=== PATIENT | female | born 1975 | race African-American/Black ===

== ENCOUNTER 2016-06-19 13:33 | Inpatient (IN) | payer BC ==
[~2016-06-19] VITALS: Ht 160 cm; Wt 89.8 kg
[2016-06-19 13:33] VITALS: BP 142/92; PULSE 111; RESP 22; TEMP 98.6; O2SAT 100
--- NOTE | 2016-06-19 13:33 | NUR ---
Placed in room 01. Placed on court recording monitor, blood pressure machine and pulse oximeter. To gown for exam. Side rails up. Report given to WILLIAMS Aguayo.
--- NOTE | 2016-06-19 13:34 | NUR ---
Dr. Mccartney at bedside for evaluation
[2016-06-19] MEDS ORDERED: LORazepam 2 MG/ML VIAL (FOR ER USE) IVP ONE (13:45)
[2016-06-19] MEDS ORDERED: NACL 0.9% 1,000 ML IV ONE (13:45)
[2016-06-19 14:35] LABS: BASOPHILS # (AUTO) 0.1 K/uL (0.0-0.2); BASOPHILS % (AUTO) 0.5 % (0.0-2.0); EOSINOPHILS # (AUTO) 0.1 K/uL (0.0-0.4); EOSINOPHILS % (AUTO) 1.3 % (0.0-4.0); HEMOGLOBIN 11.3 g/dL (12.0-16.0); LYMPHOCYTES # (AUTO) 1.9 K/uL (1.0-5.5); LYMPHOCYTES % (AUTO) 17.1 % (20.5-51.5); MEAN CORPUSCULAR HEMOGLOBIN 29 pg (27-31); MEAN CORPUSCULAR HGB CONC 33 % (32-36); MEAN CORPUSCULAR VOLUME 89 fL (79.0-98.0); MONOCYTES # (AUTO) 0.5 K/uL (0.0-1.0); MONOCYTES % (AUTO) 4.7 % (1.7-9.3); NEUTROPHILS # (AUTO) 8.7 K/uL (1.8-7.7); NEUTROPHILS % (AUTO) 76.4 % (40.0-70.0); PLATELET COUNT (AUTO) 306 K/uL (130-430); RED BLOOD CELL COUNT(AUTO) 3.83 MIL/uL (4.2-6.2); RED CELL DISTRIBUTION WIDTH 12.5 % (9.0-15.0); WHITE BLOOD COUNT (AUTO) 11.3 K/uL (4.8-10.8)
[2016-06-19 15:04] LABS: INR 1.4 (0.8-1.2); PROTHROMBIN TIME 15.6 SECS (9.5-12.5)
[2016-06-19 15:14] LABS: ALBUMIN 2.6 g/dL (3.4-4.8); CREATININE 0.59 mg/dL (0.55-1.30); TOTAL BILIRUBIN 0.1 mg/dL (0.0-1.0); TOTAL PROTEIN, SERUM 5.2 g/dL (6.4-8.3)
[2016-06-19 15:16] LABS: POTASSIUM 2.5 mmol/L (3.5-5.1)
[2016-06-19 15:17] LABS: CALCIUM 6.1 mg/dL (8.4-11.0)
[2016-06-19 15:24] LABS: BILIRUBIN,URINE NEGATIVE (NEGATIVE); BLOOD, URINE NEGATIVE (NEGATIVE); CLARITY/URINE CLEAR (CLEAR); COLOR,URINE YELLOW (YELLOW); GLUCOSE,URINE NEGATIVE (NEGATIVE); KETONES,URINE 3+ (NEGATIVE); LEUKOCYTE ESTERASE ,URINE NEGATIVE (NEGATIVE); NITRITE, URINE NEGATIVE (NEGATIVE); PH,URINE 6.5 (5.0-8.0); PROTEIN URINE NEGATIVE (NEGATIVE); UROBILINOGEN,URINE 0.2 (0.2-1.0)
[2016-06-19] MEDS ORDERED: GLUXR500 PO (15:24)
[2016-06-19] MEDS ORDERED: BENA5TAB2 PO (15:24)
--- NOTE | 2016-06-19 15:24 | NUR ---
Medication reconciliation completed with information provided by patient. Any prior medication reconciliation on file was reviewed and corrected.
[2016-06-19] MEDS ORDERED: POTASSIUM CHLORIDE 20 MEQ TAB.PRT.SR PO ONE (15:30)
[2016-06-19] MEDS ORDERED: CALCIUM GLUCONATE 500 MG TABLET PO ONE (15:30)
--- NOTE | 2016-06-19 15:36 | NUR ---
Telemetry strip printed, interpreted as SINUS RHYTHM at 115 bpm, and placed on the chart.
[2016-06-19] MEDS ORDERED: ONDANSETRON HCL 4 MG/2 ML VIAL IVP PRN (15:45)
[2016-06-19 15:46] LABS: THYROID STIMULATING HORMONE 0.71 uIu/mL (0.34-4.82)
[2016-06-19 15:47] LABS: BACTERIA,URINE RARE /HPF (None Seen); RBC,URINE 0-3 /HPF (0-3); WBC,URINE NONE SEEN /HPF (0-3)
--- NOTE | 2016-06-19 15:56 | NUR ---
ADMISSION NOTE Received patient from ER via [facility], received report from jason KRAMER. Patient admitted with diagnosis of hypokalemia, tachycardia. Patient oriented to hospital routine, call light, toileting and safety-patient verbalized understanding.
[2016-06-19 16:00] VITALS: BP 122/85; PULSE 108; RESP 19; TEMP 99; O2SAT 99
[2016-06-19 16:05] VITALS: BP 125/85; PULSE 108; RESP 18; TEMP 99; O2SAT 100
--- NOTE | 2016-06-19 16:05 | NUR ---
Patient will be admitted to care of Dr. Wilson. Admitted to telemetry unit. Will go to room 110A. Belongings list completed. Summary report printed. Report given to Priyanka Senior.
[2016-06-19 16:06] LABS: BARBITURATE, URINE NEGATIVE (NEG <=200); BENZODIAZEPINE, URINE POSITIVE (NEG <=150); CANNABINOID, URINE NEGATIVE (NEG <=50); COCAINE, URINE NEGATIVE (NEG <=150); METHAMPHETAMINES SCREEN,URINE NEGATIVE (NEG <=500); OPIATE, URINE NEGATIVE (NEG <=100); PHENCYCLIDINE SCREEN,URINE NEGATIVE (NEG <=25); UR TRICYCLIC ANTIDEPRESSANTS NEGATIVE (NEG <=300); URINE AMPHETAMINE NEGATIVE (NEG <=500); URINE METHADONE NEGATIVE (NEG <=200); URINE OXYCODONE SCREEN NEGATIVE (NEG <=100); URINE PROPOXYPHENE SCREEN NEGATIVE (NEG <=300)
[2016-06-19] MEDS: LR 1,000 ML IV SCH ×2 (17:32→20:46)
--- NOTE | 2016-06-19 18:00 | NUR ---
accucheck before dinner 161mg/dl,eating well for dinner,IVF continue infusing.continue to monitor pt.
--- NOTE | 2016-06-19 19:40 | NUR ---
PM SHIFT ASSESSMENT Received patient in sitting up in bed, aox4. Vitals stable. Denies any pain or discomfort at this time. IV line to left hand intact and patent, IVF of LR infusing at 200 cc/hr. POC discussed with patient, verbalized understanding, compliant, oriented to use call light or phone for nurse assistance, both within patient's reach. Safety measures in place, will continue to monitor.
[2016-06-19 19:54] VITALS: BP 127/68; PULSE 101; RESP 20; TEMP 97.7; O2SAT 98
[2016-06-19 20:10] LABS: CALCIUM 8.6 mg/dL (8.4-11.0); CREATININE 0.81 mg/dL (0.55-1.30); POTASSIUM 4.1 mmol/L (3.5-5.1)
--- NOTE | 2016-06-19 21:05 | NUR ---
RN ROUNDS Patient awake, blood sugar check this pm, 98. Patient denies any pain or discomfort, call light within reach, will monitor.
[2016-06-19] MEDS ORDERED: MAGNESIUM SULFATE 50 ML IV ONE (22:00)
--- NOTE | 2016-06-19 22:08 | NUR ---
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
[2016-06-19] MEDS ORDERED: DEXTROSE 50% JECT 50 ML DISP.SYRIN IVP PRN (22:15)
--- NOTE | 2016-06-19 22:31 | NUR ---
RN ROUNDS Patient seen by Dr. Wilson, new orders written, carried out. Patient updated in plan of care, verbalized understanding, compliant.
[2016-06-19 23:38] VITALS: BP 123/70; PULSE 79; RESP 20; O2SAT 99
--- NOTE | 2016-06-20 00:21 | NUR ---
RN ROUNDS Patient awake, vitals stable. Denies any pain or discomfort at this time. IVF ongoing. Safety measures in place, call light remains within reach, will continue to monitor.
--- NOTE | 2016-06-20 02:12 | NUR ---
RN ROUNDS Patient resting quietly, no distress noted, safety measures in place, call light remains within reach, will continue to monitor.
--- NOTE | 2016-06-20 04:03 | NUR ---
RN ROUNDS Patient asleep, respirations even and unlabored, vital signs stable. Safety measures in place, call light remains within reach, will continue to monitor.
[2016-06-20 05:00] VITALS: BP 132/80; PULSE 75; RESP 18; TEMP 97.2; O2SAT 98
[2016-06-20] MEDS: LR 1,000 ML IV SCH ×2 (05:41→11:49)
--- NOTE | 2016-06-20 06:28 | NUR ---
RN ROUNDS Patient awake, denies any pain or discomfort at this time, blood sugar check this am, 116. Patient's IV line intact and patent, IVF continues to infuse, patient needs attended to, safety measures maintained through out shift, call light remains within reach, will continue to monitor until report given to am nurse.
[2016-06-20 07:49] LABS: BASOPHILS # (AUTO) 0.1 K/uL (0.0-0.2); BASOPHILS % (AUTO) 0.7 % (0.0-2.0); EOSINOPHILS # (AUTO) 0.2 K/uL (0.0-0.4); EOSINOPHILS % (AUTO) 2.7 % (0.0-4.0); HEMATOCRIT 36.3 % (36-48); HEMOGLOBIN 12.5 g/dL (12.0-16.0); LYMPHOCYTES # (AUTO) 3.2 K/uL (1.0-5.5); LYMPHOCYTES % (AUTO) 37.3 % (20.5-51.5); MEAN CORPUSCULAR HEMOGLOBIN 30 pg (27-31); MEAN CORPUSCULAR HGB CONC 34 % (32-36); MEAN CORPUSCULAR VOLUME 88 fL (79.0-98.0); MONOCYTES # (AUTO) 0.5 K/uL (0.0-1.0); MONOCYTES % (AUTO) 5.7 % (1.7-9.3); NEUTROPHILS # (AUTO) 4.6 K/uL (1.8-7.7); NEUTROPHILS % (AUTO) 53.6 % (40.0-70.0); PLATELET COUNT (AUTO) 320 K/uL (130-430); RED BLOOD CELL COUNT(AUTO) 4.13 MIL/uL (4.2-6.2); RED CELL DISTRIBUTION WIDTH 12.3 % (9.0-15.0); WHITE BLOOD COUNT (AUTO) 8.6 K/uL (4.8-10.8)
[2016-06-20 08:00] VITALS: BP 121/72; PULSE 67; RESP 20; TEMP 97.9; O2SAT 95
--- NOTE | 2016-06-20 08:00 | NUR ---
Initial notes. Patient awake.alert and oriented ,denies any pain or discomfort . Telemetry note NSR rate -67 . Patient is ambulatory ,no gait disturbance.Patient instructed to keep NPO for abdominal ultrasound this morning.
--- NOTE | 2016-06-20 09:00 | NUR ---
Patient went to the bathroom but her IV got disconnected . IV infiltrated.IV started on the right forearm Gauge #24.
[2016-06-20 09:09] LABS: ANION GAP 7 (5-15); CALCIUM 8.4 mg/dL (8.4-11.0); CHLORIDE 107 mmol/L (98-107); CREATININE 0.66 mg/dL (0.55-1.30); GFR AFRICAN AMERICAN 126 mL/min (>90); GLUCOSE 112 mg/dL (70-99); POTASSIUM 4.3 mmol/L (3.5-5.1); SODIUM SERUM 136 mmol/L (136-145); UREA NITROGEN, BLOOD 6 mg/dL (8-21)
[2016-06-20 09:10] LABS: ALANINE AMINOTRANSFERASE 35 U/L (12-78); ALBUMIN 3.3 g/dL (3.4-4.8); ASPARTATE AMINOTRANSFERASE 17 U/L (10-37); CHOLESTEROL 131 mg/dL (<200); PHOSPHORUS 2.6 mg/dL (2.7-4.5); TOTAL BILIRUBIN 0.3 mg/dL (0.0-1.0); TOTAL PROTEIN, SERUM 6.5 g/dL (6.4-8.3); TRIGLYCERIDES 95 mg/dL (30-150)
[2016-06-20 09:11] LABS: HDL CHOLESTEROL 51 mg/dL (>55); LDL CHOLESTEROL 61 mg/dL (<100)
[2016-06-20 09:12] LABS: IRON (SERUM) 121 mcg/dL (37-145); TOTAL IRON BIND. CAPACITY 325 ug/dL (250-450)
--- NOTE | 2016-06-20 10:00 | NUR ---
Patient reminded to be NPO for Ultrasound of the abdomen to be done at 3pm.
[2016-06-20] MEDS ORDERED: METOPROLOL SUCCINATE 50 MG TAB.SR.24H (TOPROL XL) PO ONE (10:30)
--- NOTE | 2016-06-20 12:00 | NUR ---
Patient resting awaiting for test to be done .Denies any discomfort
[2016-06-20 12:06] VITALS: BP 129/79; PULSE 72; RESP 16; TEMP 98.5; O2SAT 99
[2016-06-20] MEDS: INSULIN REGULAR, HUMAN 100 UNITS/ML, 10 ML VIAL (novoLIN R) SUBCUT PRN (16:43)
[2016-06-20 16:49] VITALS: BP 136/89; PULSE 79; RESP 16; TEMP 98.8; O2SAT 100
--- NOTE | 2016-06-20 17:07 | NUR ---
1600 Abdominal ultrasound done at bedside . Patient eating her lunch.
--- NOTE | 2016-06-20 18:44 | NUR ---
Patient remained stable ,telemetry NSR HR 60's.Denies any pain or discomfort.
--- NOTE | 2016-06-20 19:55 | NUR ---
PM SHIFT ASSESSMENT Received patient in sitting up in bed, aox4. Vitals stable. Denies any pain or discomfort at this time. Sinus Rhythm on tele monitor. IV line to right forearm infiltrated, new IV line placed to right forearm with 22 gauge catheter, good blood return noted, secured with opsite and tape, continued with IVF of LR infusing at 100 cc/hr. POC discussed with patient, verbalized understanding, compliant, oriented to use call light or phone for nurse assistance, both within patient's reach. Safety measures in place, will continue to monitor.
[2016-06-20 20:00] VITALS: BP 134/71; PULSE 78; RESP 20; TEMP 99; O2SAT 99
--- NOTE | 2016-06-20 21:15 | NUR ---
RN ROUNDS Patient awake, blood sugar check this pm, 128. Patient denies any pain or discomfort, HS snack given, call light within reach, will monitor.
--- NOTE | 2016-06-20 22:32 | NUR ---
RN ROUNDS Patient awake denies any pain or discomfort at this time. IVF ongoing. Safety measures in place, call light remains within reach, will continue to monitor.
--- NOTE | 2016-06-20 23:59 | NUR ---
RN ROUNDS Patient awake, vital signs stable. Denies any pain or discomfort at this time. Significant other at bedside, safety measures in place, call light remains within reach, will continue to monitor.
[2016-06-21] VITALS: BP 131/73; PULSE 75; RESP 17; TEMP 98.6; O2SAT 98
[2016-06-21] MEDS: LR 1,000 ML IV SCH ×2 (00:25→10:57)
--- NOTE | 2016-06-21 02:08 | NUR ---
N ROUNDS Patient asleep, respirations even and unlabored. IVF infusing. Safety measures in place, call light remains within reach, will continue to monitor.
--- NOTE | 2016-06-21 04:03 | NUR ---
RN ROUNDS Patient asleep, respirations even and unlabored. Vital signs stable. Safety measures in place, call light remains within reach, will continue to monitor.
[2016-06-21 04:24] VITALS: BP 128/68; PULSE 74; RESP 17; TEMP 98.2; O2SAT 98
--- NOTE | 2016-06-21 06:31 | NUR ---
RN ROUNDS Patient awake, denies any pain or discomfort at this time, blood sugar check this am, 136. Needs attended to, safety measures maintained through out shift, call light remains within reach, will continue to monitor until report given to am nurse.
[2016-06-21 07:41] LABS: BASOPHILS % (AUTO) 0.5 % (0.0-2.0); EOSINOPHILS # (AUTO) 0.3 K/uL (0.0-0.4); EOSINOPHILS % (AUTO) 3.2 % (0.0-4.0); HEMATOCRIT 37.1 % (36-48); HEMOGLOBIN 12.7 g/dL (12.0-16.0); LYMPHOCYTES # (AUTO) 3.3 K/uL (1.0-5.5); LYMPHOCYTES % (AUTO) 36.6 % (20.5-51.5); MEAN CORPUSCULAR HEMOGLOBIN 31 pg (27-31); MEAN CORPUSCULAR HGB CONC 34 % (32-36); MEAN CORPUSCULAR VOLUME 89 fL (79.0-98.0); MONOCYTES # (AUTO) 0.5 K/uL (0.0-1.0); NEUTROPHILS # (AUTO) 4.9 K/uL (1.8-7.7); NEUTROPHILS % (AUTO) 53.7 % (40.0-70.0); PLATELET COUNT (AUTO) 327 K/uL (130-430); RED BLOOD CELL COUNT(AUTO) 4.18 MIL/uL (4.2-6.2); RED CELL DISTRIBUTION WIDTH 12.5 % (9.0-15.0)
[2016-06-21 07:45] LABS: CALCIUM 8.7 mg/dL (8.4-11.0); CREATININE 0.72 mg/dL (0.55-1.30); POTASSIUM 4.8 mmol/L (3.5-5.1)
[2016-06-21 07:47] LABS: INR 0.9 (0.8-1.2); PROTHROMBIN TIME 10.2 SECS (9.5-12.5)
[2016-06-21 07:50] VITALS: BP 114/54; PULSE 71; RESP 17; TEMP 98.8; O2SAT 98
--- NOTE | 2016-06-21 08:00 | NUR ---
Initial note A/O x 4, no SOB, no chest pain, denied pain, skin warm to touch, IV #22 at R FA, patent, free of infiltration or infection. Continue IVF LR at 100 ml/hr, patient tolerated well. Lung sounds clear, bowel sounds present all quadrants. No s/s of hyper or hypoglycemia, patient denied palpitation. +2 radial and pedal pulses without edema noted. Good appetite with adequate hydration. Call light within reach, education provided, will continue to monitor patient.
[2016-06-21] MEDS ORDERED: METOPROLOL SUCCINATE 50 MG TAB.SR.24H (TOPROL XL) PO SCH (09:00)
--- NOTE | 2016-06-21 10:10 | NUR ---
Round A/O x 4, no SOB, no chest pain, denied pain, skin warm to touch, IV #22 at R FA, patent, free of infiltration or infection. Continue IVF LR at 100 ml/hr, patient tolerated well. Lung sounds clear, bowel sounds present all quadrants. No s/s of hyper or hypoglycemia, patient denied palpitation. Patient is BRP, BM x 1. No edema noted. Call light within reach, education provided, will continue to monitor patient.
[2016-06-21] MEDS: INSULIN REGULAR, HUMAN 100 UNITS/ML, 10 ML VIAL (novoLIN R) SUBCUT PRN ×2 (11:12→17:55)
[2016-06-21 11:41] VITALS: BP 139/84; PULSE 62; RESP 17; TEMP 98.6; O2SAT 98
--- NOTE | 2016-06-21 12:30 | NUR ---
Round A/O x 4, no SOB, no chest pain, denied pain, skin warm to touch, IV #22 at R FA, patent, free of infiltration or infection. Continue IVF LR at 100 ml/hr, patient tolerated well. Fair appetite with adequate fluids intake. Lung sounds clear, bowel sounds present all quadrants. No s/s of hyper or hypoglycemia, patient denied palpitation. Patient is BRP. No edema noted. Call light within reach, education provided, will continue to monitor patient.
--- NOTE | 2016-06-21 14:20 | NUR ---
Round A/O x 4, no SOB, no chest pain, denied pain, skin warm to touch, IV #22 at R FA, patent, free of infiltration or infection. Continue IVF LR at 100 ml/hr, patient tolerated well. Lung sounds clear, bowel sounds present all quadrants. No s/s of hyper or hypoglycemia, patient denied palpitation. Patient is BRP. No edema noted. Call light within reach, education provided, will continue to monitor patient.
--- NOTE | 2016-06-21 15:00 | NUR ---
Snack given Patient requested 2 cups of juice. Apple juice and cranberry juice provided. No s/s of hyper or hypoglycemia.
[2016-06-21 15:16] VITALS: BP 135/74; PULSE 65; RESP 18; TEMP 98.6; O2SAT 98
--- NOTE | 2016-06-21 16:00 | NUR ---
Round A/O x 4, no SOB, no chest pain, denied pain, skin warm to touch, IV #22 at R FA, patent, free of infiltration or infection. Continue IVF LR at 100 ml/hr, patient tolerated well. Lung sounds clear, bowel sounds present all quadrants. C/o hungry earlier, sandwish provided. No s/s of hyper or hypoglycemia, patient denied palpitation. Patient is BRP. No edema noted. Call light within reach, education provided, will continue to monitor patient.
--- NOTE | 2016-06-21 18:00 | NUR ---
Closing note and MD jennie A/O x 4, no SOB, no chest pain, denied pain, skin warm to touch, IV #22 at R FA, patent, free of infiltration or infection. Continue IVF LR at 100 ml/hr, patient tolerated well. Lung sounds clear, bowel sounds present all quadrants. No s/s of hyper or hypoglycemia, patient denied palpitation. Patient is BRP. No edema noted. Dr. Wilson here and DC patient home. Patient is aware of DC. Call light within reach, education provided, will continue to monitor patient.
[2016-06-21] MEDS ORDERED: METO50TA7 PO (18:06)
[2016-06-21 19:27] VITALS: BP 132/84; PULSE 70; RESP 18; TEMP 98.8; O2SAT 99
--- NOTE | 2016-06-21 20:08 | NUR ---
D/C Patient Patient given medication reconciliation form and D/C instructions. Exit Care provided. Patient verbalized understanding. MD discussed with patient the results and treatment provided. Ambulatory with steady gait for discharge to home. Patient in stable condition, ID band removed. IV catheter removed, intact and dressing applied, no active bleeding. Rx of Toprol XL given. Patient educated on pain management. All belongings sent with patient.
== END 2016-06-21 20:00 | disposition home or self-care (01) | DRG 309 ==
LOC: SED 13:33 → STU 15:31
PROVIDERS: ADMIT Internal Medicine; ATTEND Internal Medicine
DX: I47.1 Supraventricular tachycardia (principal); E44.0 Moderate protein-calorie malnutrition; I10 Essential (primary) hypertension; E11.9 Type 2 diabetes mellitus without complications; E66.9 Obesity, unspecified; E87.6 Hypokalemia; E83.51 Hypocalcemia; Z68.35 Body mass index [BMI] 35.0-35.9, adult; D64.9 Anemia, unspecified; K76.0 Fatty (change of) liver, not elsewhere classified; Z79.4 Long term (current) use of insulin; Z90.710 Acquired absence of both cervix and uterus; Z83.3 Family history of diabetes mellitus; Z87.891 Personal history of nicotine dependence; Z98.84 Bariatric surgery status
CPT/HCPCS: 36415; 71010; 76700-TC; 80048; 80053; 80061; 80307; 81000-TC; 82962; 83540-TC; 83550-TC; 83735-TC; 84100-TC; 84302-TC; 84443-TC; 84484; 84703; 84999-TC; 85025; 85379; 85610-TC; 85730-TC; 93005; 93306; 96361; 96374; 99285; J1815; J2060; J3475; J7030; J7120